=== PATIENT | female | born 1975 | race Caucasian/White ===

== ENCOUNTER 2020-06-12 17:36 | Emergency (ER) | payer BC ==
[2020-06-12] MEDS ORDERED: KETOROLAC 30 MG/ML VIAL IVP STA (18:56)
[2020-06-12] MEDS ORDERED: HYDROmorphone 1 MG/ML CARPUJECT IVP STA (18:56)
[2020-06-12] MEDS ORDERED: DEXAMETHASONE 10 MG/ML VIAL IVP STA (18:56)
--- NOTE | 2020-06-12 19:05 | ED Physician Documentation ---
PD HPI BACK PAIN - Stated complaint Stated Complaint: BACK PX - Chief complaint Chief Complaint: Back Pain - History obtained from History obtained from: Patient - History of Present Illness Timing - onset: How many days ago (1) Timing - duration: Days (1) Timing - details: Gradual onset Pain level max: 10 Pain level now: 10 Location: Lower, Right, Left Quality: Pain, Spasm, Similar to prior episodes Associated symptoms: No: Fever, Weakness, Numbness, Incontinent of urine, Unable to urinate, Hematuria, Incontinent of stool Improves with: Rest Worsened by: Movement Contributing factors: Lifting (She was lifting a box of water today) Recently seen: Not recently seen - Additional information Additional information: Patient complains of low back pain and spasm. History of L4-L5 disc herniation. Has had cortisone injections in the past. No numbness, tingling, loss of bowel or bladder control. Review of Systems Constitutional: denies: Fever, Chills GI: denies: Vomiting, Diarrhea : denies: Incontinent Skin: denies: Rash Musculoskeletal: denies: Neck pain Neurologic: denies: Focal weakness PD PAST MEDICAL HISTORY - Past Medical History Past Medical History: Yes Musculoskeletal: Chronic back pain - Present Medications Home Medications: Ambulatory Orders Medication Instructions Recorded Confirmed Cyclobenzaprine [Flexeril] 10 mg PO TID PRN #20 tablet 06/12/20 Gabapentin [Neurontin] 300 mg PO TID 06/12/20 06/12/20 Meloxicam [Mobic] 7.5 mg PO BID PRN #20 tablet 06/12/20 Methylprednisolone [Medrol] 4 mg PO DAILY #1 06/12/20 Oxycodone HCl/Acetaminophen 1 - 2 each PO Q6H PRN #14 tablet 06/12/20 [Percocet 5-325 mg Tablet] - Allergies Allergies/Adverse Reactions: Allergies Allergy/AdvReac Type Severity Reaction Status Date / Time iodine Allergy Nausea Verified 06/12/20 18:28 - Living Situation Living Situation: reports: With family Living Arrangement: reports: At home - Social History Does the pt have substance abuse?: No - Family History Family history: reports: Non contributory PD ED PE NORMAL - Vitals Vital signs reviewed: Yes - General General: Alert and oriented X 3, No acute distress, Well developed/nourished - HEENT HEENT: PERRL, Moist mucous membranes - Neck Neck: Supple, no meningeal sign - Cardiac Cardiac: RRR, Strong equal pulses - Respiratory Respiratory: No respiratory distress, Clear bilaterally - Abdomen Abdomen: Soft, Non tender, Non distended - Back Back: No spinal TTP, Other (Midline tenderness to palpation. No step-off or deformity. Does have paraspinal tenderness, left greater than right low lumbar.) - Derm Derm: Warm and dry - Extremities Extremities: No edema, No calf tenderness / cord - Neuro Neuro: Alert and oriented X 3, No motor deficit, No sensory deficit, Other (Normal bilateral lower extremity patellar and ankle jerk reflexes. Normal great toe extension bilaterally. no saddle anesthesia) - Psych Psych: Normal mood, Normal affect Results - Vitals Vitals: Vital Signs - 24 hr 06/12/20 06/12/20 06/12/20 18:22 19:18 19:44 Temperature 36.6 C 36.8 C Heart Rate 82 70 60 Respiratory 20 19 16 Rate Blood Pressure 129/74 111/65 104/72 O2 Saturation 100 98 97 06/12/20 20:15 Temperature 36.4 C L Heart Rate 60 Respiratory 16 Rate Blood Pressure 100/66 O2 Saturation 97 Oxygen O2 Source Room air PD MEDICAL DECISION MAKING - ED course Complexity details: reviewed results, re-evaluated patient, considered differential (No cauda equina, no spinal epidural abscess, no fracture, no aortic dissection or evidence of aneursym rupture), d/w patient ED course: Patient with what appears to be low back pain and spasm. Likely secondary to her herniated disc. Given dexamethasone, Toradol and Dilaudid here. Pain improved. Will place on pain medication anti-inflammatories and steroids for home. We will have her follow-up with her doctor for further care. Patient counseled regarding signs and symptoms for which I believe and urgent re- evaluation would be necessary. Patient with good understanding of and agreement to plan and is comfortable going home at this time This document was made in part using voice recognition software. While efforts are made to proofread this document, sound alike and grammatical errors may occur. Departure - Departure Disposition: 01 Home, Self Care Clinical Impression: Back spasm Herniated disc Qualifiers: Spinal region: lumbar Qualified Code(s): M51.26 - Other intervertebral disc displacement, lumbar region Condition: Good Instructions: ED Spasm Back No Trauma Follow-Up: your,doctor in 1 week [Other] DENVER COCHRAN MD [Physician No Access] - [facility],SHERRI ROMANO MD [Physician No Access] - Prescriptions: Cyclobenzaprine [Flexeril] 10 mg PO TID PRN #20 tablet PRN Reason: Spasms Methylprednisolone [Medrol] 4 mg PO DAILY #1 Meloxicam [Mobic] 7.5 mg PO BID PRN #20 tablet PRN Reason: Pain Oxycodone HCl/Acetaminophen [Percocet 5-325 mg Tablet] 1 - 2 each PO Q6H PRN #14 tablet PRN Reason: pain Comments: Use the medications as needed for pain. Follow-up with your doctor for further care. Return if you worsen. Do not drink alcohol or drive while on narcotic pain medicine. Note that many narcotic pain relievers also contain tylenol/acetaminophen. Please ensure that your total dose of acetaminophen from all sources does not exceed 3 grams (3000mg) per day. You may constipated on this medication, take a stool softener such as "Colace" twice a day while you are on it. Also recommend a ggma-uxn-zjyiavc laxative such as senna or MiraLAX any day that you do not have a bowel movement. If you received narcotic pain medication in the emergency department, do not drive or operate machinery for the next 24 hours. Discharge Date/Time: 06/12/20 20:22
[2020-06-12] MEDS ORDERED: oxyCODONE/ACET 5/325 Prepack 4 PO STA (19:58)
[2020-06-12 20:46] VITALS: BP 100/66
== END 2020-06-12 20:22 | disposition home or self-care (01) ==
LOC: ED 17:36
DX: M62.830 Muscle spasm of back (principal); M51.26 Other intervertebral disc displacement, lumbar region
CPT/HCPCS: 96374; 96375; 99283; 99284; J1170

== ENCOUNTER 2020-06-21 22:36 | Emergency (ER) | payer BC ==
--- NOTE | 2020-06-22 00:23 | ED Physician Documentation ---
PD HPI LOWER EXT INJURY - Stated complaint Stated Complaint: LT FOOT INJURY - Chief complaint Chief Complaint: Ext Problem - History obtained from History obtained from: Patient - Additional information Additional information: Patient comes emergency department chief complaint of left great toe and first MTP joint pain after an injury earlier this afternoon. Patient states that she was walking and caught her foot, lurching forward and causing her toes on the left to hyperextend at the MTP joints. Patient states that her great toe is affected the worst. She states she immediately felt some pain, but that over the ensuing hours, the pain seemed to get worse and worse. She also had some swelling. Patient states that she can hardly bear weight because it hurts so bad. She was not injured in any other way. Patient took ibuprofen earlier but has not had any relief with this. No other complaints at this time. Review of Systems Ten Systems: 10 systems reviewed and negative Constitutional: reports: Reviewed and negative Eyes: reports: Reviewed and negative Ears: reports: Reviewed and negative Nose: reports: Reviewed and negative Throat: reports: Reviewed and negative Cardiac: reports: Reviewed and negative Respiratory: reports: Reviewed and negative GI: reports: Reviewed and negative : reports: Reviewed and negative Skin: reports: Reviewed and negative Musculoskeletal: reports: Joint pain, Joint swelling, Pain with weight bearing Neurologic: reports: Reviewed and negative Psychiatric: reports: Reviewed and negative Endocrine: reports: Reviewed and negative Immunocompromised: reports: Reviewed and negative PD PAST MEDICAL HISTORY - Past Medical History Past Medical History: Yes Cardiovascular: None Respiratory: None Neuro: None Endocrine/Autoimmune: HyPOthyroidism GI: None PASTER HAT LINING: None : None HEENT: None Psych: None Musculoskeletal: None, Chronic back pain Derm: None - Past Surgical History Past Surgical History: Yes /PASTER HAT LINING: Other - Present Medications Home Medications: Ambulatory Orders Medication Instructions Recorded Confirmed Cyclobenzaprine [Flexeril] 10 mg PO TID PRN #20 tablet 06/12/20 Gabapentin [Neurontin] 300 mg PO TID 06/12/20 06/12/20 Meloxicam [Mobic] 7.5 mg PO BID PRN #20 tablet 06/12/20 Methylprednisolone [Medrol] 4 mg PO DAILY #1 06/12/20 Oxycodone HCl/Acetaminophen 1 - 2 each PO Q6H PRN #14 tablet 06/12/20 [Percocet 5-325 mg Tablet] - Allergies Allergies/Adverse Reactions: Allergies Allergy/AdvReac Type Severity Reaction Status Date / Time iodine Allergy Nausea Verified 06/21/20 22:48 - Social History Does the pt smoke?: No Smoking Status: Never smoker Does the pt drink ETOH?: No Does the pt have substance abuse?: No - Immunizations Immunizations are current?: Yes - POLST Patient has POLST: No PD ED PE NORMAL - Vitals Vital signs reviewed: Yes - General General: Alert and oriented X 3, No acute distress, Well developed/nourished - HEENT HEENT: Atraumatic, PERRL, EOMI, Moist mucous membranes - Neck Neck: Supple, no meningeal sign - Cardiac Cardiac: Strong equal pulses - Respiratory Respiratory: No respiratory distress - Derm Derm: Normal color, Warm and dry, No rash - Extremities Extremities: No deformity, Other (Mild edema at first MTP joint on the left. Global tenderness over first MTP and great toe. No deformity.) - Neuro Neuro: Alert and oriented X 3 - Psych Psych: Normal mood, Normal affect Results - Vitals Vitals: Vital Signs - 24 hr 06/21/20 06/22/20 22:46 00:45 Temperature 36.9 C Heart Rate 73 71 Respiratory 16 16 Rate Blood Pressure 104/51 L 105/65 O2 Saturation 98 100 Oxygen O2 Source Room air - Rads (name of study) L foot XR Radiology: Final report received, EMP read indepedently, See rad report PD MEDICAL DECISION MAKING - ED course Complexity details: reviewed results, re-evaluated patient, considered differential, d/w patient ED course: Left foot x-ray series was performed and found to be negative. Patient was p laced in a cast shoe and given a pair of crutches. We have discussed elevation, ice, and nonweightbearing/minimal weightbearing until toe is feeling better. Patient may use ibuprofen and Tylenol at home, or she may substitute her stronger narcotics that she has for her back if needed. We discussed follow-up and the usual indications for return. Departure - Departure Disposition: 01 Home, Self Care Clinical Impression: Sprain, IP, toe, great, left Qualifiers: Encounter type: initial encounter Qualified Code(s): S93.512A - Sprain of interphalangeal joint of left great toe, initial encounter Condition: Stable Instructions: ED Sprain Toe Comments: Your x-rays were read as negative by the radiologist. You have most likely sprained and bruised her toe in the process of injury. Keeping weight off the foot for a few days and applying ice will most likely be the most helpful thing, as will propping her foot. You may use ibuprofen and Tylenol if needed for the discomfort. If you need to walk or bear weight on the foot, you may use the postop shoe that we have provided which will keep your foot from bending at the painful joint. Discharge Date/Time: 06/22/20 00:46
[2020-06-22 00:47] VITALS: BP 105/65
--- NOTE | 2020-06-22 11:15 | XRAY Report ---
PROCEDURE: Foot 3 View LT INDICATIONS: PAIN/TENDERNESS/SWELLING L GREAT TOE.. TECHNIQUE: 3 views of the foot were acquired. COMPARISON: None FINDINGS: Bones: No fractures or dislocations. No suspicious bony lesions. Soft tissues: No tibiotalar joint effusion. Achilles tendon appears normal. IMPRESSION: No visualized acute fracture or dislocation. However, occult injury cannot be excluded. Recommend jessica rt interval imaging follow-up in 7-10 days as clinically indicated for additional evaluation. The above findings are concordant with preliminary report. Reviewed by: Estrellita Brower MD on 06/22/2020 11:14 AM PDT Approved by: Estrellita Brower MD on 06/22/2020 11:14 AM PDT Station ID: [id number]
--- OUTSIDE RECORDS SUMMARY | 2020-06-28 23:09 | EXTERNAL MEDICAL SUMMARY RPT | Continuity of Care Document ---
:1975 Demographics Phone Unavailable Preferred Language Unknown Marital Status Unknown Adventism Affiliation Unknown Race Unknown Ethnic Group Unknown Author Organization [facility] Address [address] [phone] Phone Social History date description facility [id number]
== END 2020-06-22 00:46 | disposition home or self-care (01) ==
LOC: ED 22:36
DX: S93.512A Sprain of interphalangeal joint of left great toe, initial encounter (principal); X50.1XXA Overexertion from prolonged static or awkward postures, initial encounter; Y93.01 Activity, walking, marching and hiking
CPT/HCPCS: 99282; 99283

== ENCOUNTER 2020-07-29 16:25 | Outpatient (CLI) | payer BC ==
[2020-07-29 21:05] LABS: BASOPHILS # (AUTO) 0.1 10^3/uL (0.0-0.1); BASOPHILS % (AUTO) 0.6 %; EOSINOPHILS # (AUTO) 0.1 10^3/uL (0.0-0.7); EOSINOPHILS % (AUTO) 0.8 %; HCT - HEMATOCRIT 41.3 % (37.0-47.0); HGB - HEMOGLOBIN 14.2 g/dL (12.0-16.0); LYMPHOCYTES % (AUTO) 38.6 %; MEAN CORPUSCULAR HGB CONC 34.4 g/dL (32.0-36.0); MEAN PLATELET VOLUME 10.8 fL (7.9-10.8); MONOCYTES # (AUTO) 0.5 10^3/uL (0.0-1.0); MONOCYTES % (AUTO) 6.3 %; NEUTROPHILS # (AUTO) 4.2 10^3/uL (1.5-6.6); NEUTROPHILS % (AUTO) 53.4 %; PLT - PLATELET COUNT 260 10^3/uL (130-450); RED BLOOD COUNT 4.44 10^6/uL (4.20-5.40); WHITE BLOOD COUNT 7.8 x10^3/uL (4.8-10.8)
[2020-07-29 21:20] LABS: ALBUMIN 4.6 g/dL (3.2-5.5); ALBUMIN/GLOBULIN RATIO 2.1 (1.0-2.2); ALKALINE PHOSPHATASE 39 IU/L (42-121); ALT ALANINE AMINOTRANSFERASE 11 IU/L (10-60); AST ASPARTATE AMINOTRANSFERASE 13 IU/L (10-42); BILIRUBIN,TOTAL 0.9 mg/dL (0.2-1.0); BUN - BLOOD UREA NITROGEN 23 mg/dL (6-20); CALCIUM 9.1 mg/dL (8.5-10.3); CARBON DIOXIDE - CO2 28 mmol/L (21-32); CHLORIDE 107 mmol/L (101-111); CHOL/HDL RATIO 3.5 (<4.4); CHOLESTEROL 183 mg/dL; CREATININE 0.5 mg/dL (0.4-1.0); GFR - MDRD 132 (>89); GLUCOSE 90 mg/dL (70-100); HDL CHOLESTEROL 52 mg/dL; LDL CHOLESTEROL,CALCULATED 121 mg/dL; LDL/HDL RATIO 2.3 (<4.4); POTASSIUM 3.9 mmol/L (3.5-5.0); SODIUM 142 mmol/L (135-145); TOTAL PROTEIN 6.8 g/dL (6.7-8.2); TRIGLYCERIDES 48 mg/dL; VLDL CHOLESTEROL 10 mg/dL
[2020-07-29 21:26] LABS: % IRON SATURATION 38 % (20-50); IRON 119 ug/dL (28-170); TOTAL IRON BINDING CAPACITY 314 ug/dL (250-450); TRANSFERRIN 224 mg/dL (192-382)
[2020-07-29 21:32] LABS: THYROID STIMULATING HORMONE 0.39 uIU/mL (0.34-5.60)
[2020-07-29 21:32] LABS: FREE T3 3.32 pg/mL (2.5-3.9)
[2020-07-29 21:37] LABS: FERRITIN 53.9 ng/mL (11.0-306.8)
== END 2020-07-29 16:26 | disposition home or self-care (01) ==
LOC: LAB.N 16:25
PROVIDERS: ATTEND Registered Nurse
DX: Z01.419 Encounter for gynecological examination (general) (routine) without abnormal findings (principal); Z79.899 Other long term (current) drug therapy; R94.6 Abnormal results of thyroid function studies; E55.9 Vitamin D deficiency, unspecified; D50.0 Iron deficiency anemia secondary to blood loss (chronic); E83.42 Hypomagnesemia
CPT/HCPCS: 36415; 80053; 80061; 81599; 82306; 82728; 83540; 83721; 83735; 84443; 84466; 84481; 85025; 86376; 86800